=== PATIENT | female | born 1955 | race Caucasian/White ===

== ENCOUNTER 2020-02-12 11:56 | Day surgery (SDC) | payer MEDICARE ==
[~2020-02-12 11:56] MED LIST: DIPRIVAN 200 MG/20 ML IV ONE; Ketamine HCl 50 MG/ML ONE
[2020-02-12] MEDS ORDERED: Depo-Medrol 40 MG/ML IM ONE (11:57)
[2020-02-12] MEDS ORDERED: Sodium Chloride 0.9(Preservative Free) 10 ML IJ ONE (11:57)
--- NOTE | 2020-02-12 14:04 | XRAY ---
Indication: Right L4-S1 transforaminal FUNMILAYO. Intraoperative fluoroscopy was provided for 26 seconds. 4 digital spot images submitted for interpretation demonstrates posterior needle tips projecting over the expected right L4 and L5 nerve roots. Small amount of contrast injected for needle tip placement. Correlate with intraoperative findings/report.
--- NOTE | 2020-02-12 14:06 | XRAY ---
26 seconds of fluoroscopy was used in surgery for a right L4-L5, L5-S1 transforaminal FUNMILAYO.
[2020-02-12] MEDS ORDERED: Lactated Ringers 1,000 ML IV ONE (15:51)
== END 2020-02-12 13:40 | disposition home or self-care (01) ==
LOC: SDC-PAIN 11:56
PROVIDERS: ATTEND Psychiatry & Neurology Pain Medicine
DX: M54.16 Radiculopathy, lumbar region (principal); F41.8 Other specified anxiety disorders; Z79.899 Other long term (current) drug therapy
CPT/HCPCS: 64483; 64484; 72100; 77003; J1030; J2704; Q9966

== ENCOUNTER 2021-03-24 15:12 | Day surgery (SDC) | payer MEDICARE ==
[2021-03-24] MEDS ORDERED: Decadron 4 MG INJ IV ONE (15:13)
[2021-03-24] MEDS ORDERED: Depo-Medrol 40 MG/ML IM ONE (15:13)
[2021-03-24] MEDS ORDERED: Xylocaine 1% Vial 30 ML PF IJ ONE (15:13)
[2021-03-24] MEDS ORDERED: DIPRIVAN 200 MG/20 ML IV ONE (15:13)
[2021-03-24] MEDS ORDERED: Sodium Chloride 0.9(Preservative Free) 10 ML IJ ONE (15:13)
[2021-03-24] MEDS ORDERED: Lactated Ringers 1,000 ML IV ONE (17:30)
--- NOTE | 2021-03-25 07:17 | XRAY ---
Indication: Right piriformis muscle injection. Intraoperative fluoroscopy provided for 9 seconds. Single digital spot image submitted for interpretation demonstrates posterior needle tip projecting over the expected right piriformis muscle. Small amount of contrast injected for needle tip placement. Correlate with intraoperative findings/report.
--- NOTE | 2021-03-25 07:17 | XRAY ---
Indication: Right L4-S1 transforaminal FUNMILAYO. Intraoperative fluoroscopy provided for 21 seconds. 2 digital spot image submitted for interpretation demonstrates posterior needle tips projecting over the expected right L4 and L5 nerve roots. Small amount of contrast injected for needle tip placement. Correlate with intraoperative findings/report.
--- NOTE | 2021-03-25 10:20 | XRAY ---
9 seconds fluoroscopy time in surgery for injection of the right piriformis muscle.
--- NOTE | 2021-03-25 10:20 | XRAY ---
21 seconds fluoroscopy time in surgery for right L4-S1 transforaminal FUNMILAYO.
== END 2021-03-24 18:28 | disposition home or self-care (01) ==
LOC: SDC-PAIN 15:12
PROVIDERS: ATTEND Psychiatry & Neurology Pain Medicine
DX: M54.16 Radiculopathy, lumbar region (principal); M79.18 Myalgia, other site; F41.9 Anxiety disorder, unspecified; F32.9 Major depressive disorder, single episode, unspecified; G43.909 Migraine, unspecified, not intractable, without status migrainosus; Z79.899 Other long term (current) drug therapy
CPT/HCPCS: 20552; 64483; 64484; 72020; 72100; 77002; 77003; J1030; J1100; J2001; J2704; Q9966

== ENCOUNTER 2021-07-21 12:19 | Day surgery (SDC) | payer MEDICARE ==
[2021-07-21] MEDS ORDERED: Depo-Medrol 40 MG/ML IM ONE (12:20)
[2021-07-21] MEDS ORDERED: BUPIVACAINE 0.5% VIAL IJ ONE (12:20)
[2021-07-21] MEDS ORDERED: Lactated Ringers 1,000 ML IV ONE (14:29)
[2021-07-21] MEDS ORDERED: DIPRIVAN 200 MG/20 ML IV ONE (14:37)
--- NOTE | 2021-07-21 17:21 | XRAY ---
20 seconds fluoroscopy time in surgery for injections of both SI joints.
--- NOTE | 2021-07-21 17:22 | XRAY ---
Indication: Bilateral SI joint injection. Intraoperative fluoroscopy provided for 20 seconds. 3 digital spot image submitted for interpretation demonstrates posterior needle tip projecting over the inferior left and right SI joint. Correlate with intraoperative findings/report.
== END 2021-07-21 15:03 | disposition home or self-care (01) ==
LOC: SDC-PAIN 12:19
PROVIDERS: ATTEND Psychiatry & Neurology Pain Medicine
DX: M46.1 Sacroiliitis, not elsewhere classified (principal); Z79.899 Other long term (current) drug therapy
CPT/HCPCS: 27096; 72202; 77002; G0260; J1030; J2704

== ENCOUNTER 2022-02-16 12:06 | Day surgery (SDC) | payer MEDICARE ==
[2022-02-16] MEDS ORDERED: Sodium Chloride 0.9(Preservative Free) 10 ML IJ ONE (12:07)
[2022-02-16] MEDS ORDERED: Depo-Medrol 40 MG/ML IM ONE (12:07)
[2022-02-16] MEDS ORDERED: DIPRIVAN 200 MG/20 ML IV ONE (14:07)
[2022-02-16] MEDS ORDERED: Lactated Ringers 1,000 ML IV ONE (14:29)
--- NOTE | 2022-02-16 17:14 | XRAY ---
Indication: Right L3-L5 transforaminal FUNMILAYO. Intraoperative fluoroscopy provided for 26 seconds. 4 digital spot image submitted for interpretation demonstrates posterior needle tips projecting over the expected right L3 and L4 nerve roots. Small amount of contrast injected for needle tip placement. Correlate with intraoperative findings/report.
--- NOTE | 2022-02-16 17:21 | XRAY ---
26 seconds fluoroscopy time in surgery for right L3-L5 transforaminal FUNMILAYO.
== END 2022-02-16 14:40 | disposition home or self-care (01) ==
LOC: SDC-PAIN 12:06
PROVIDERS: ATTEND Psychiatry & Neurology Pain Medicine
DX: M54.16 Radiculopathy, lumbar region (principal); Z79.899 Other long term (current) drug therapy
CPT/HCPCS: 64483; 64484; 72100; 77003; J1030; J2704; Q9966

== ENCOUNTER 2022-08-31 12:28 | Day surgery (SDC) | payer MEDICARE ==
[2022-08-31] MEDS ORDERED: Depo-Medrol 40 MG/ML IM ONE (12:29)
[2022-08-31] MEDS ORDERED: BUPIVACAINE 0.5% VIAL IJ ONE (12:29)
[2022-08-31] MEDS ORDERED: DIPRIVAN 200 MG/20 ML IV ONE (14:42)
[2022-08-31] MEDS ORDERED: Lactated Ringers 1,000 ML IV ONE (15:11)
--- NOTE | 2022-08-31 16:27 | XRAY ---
Indication: Bilateral SI joint injection. Intraoperative fluoroscopy provided for 19 seconds. 4 digital spot images submitted for interpretation demonstrates posterior needle tip projecting over the left and right SI joint. Correlate with intraoperative findings/report.
--- NOTE | 2022-08-31 16:28 | XRAY ---
19 seconds of fluoroscopy was used in surgery for a sacroiliac joint injection.
== END 2022-08-31 15:30 | disposition home or self-care (01) ==
LOC: SDC-PAIN 12:28
PROVIDERS: ATTEND Psychiatry & Neurology Pain Medicine
DX: M46.1 Sacroiliitis, not elsewhere classified (principal); Z79.899 Other long term (current) drug therapy
CPT/HCPCS: 27096; 72202; 77002; G0260; J1030; J2704

== ENCOUNTER 2022-10-19 12:50 | Day surgery (SDC) | payer MEDICARE ==
[2022-10-19] MEDS ORDERED: LIDOCAINE HCL 2% 100 MG/5 ML IJ ONE (12:51)
[2022-10-19] MEDS ORDERED: DIPRIVAN 200 MG/20 ML IV ONE (14:44)
[2022-10-19] MEDS ORDERED: Lactated Ringers 1,000 ML IV ONE (15:24)
--- NOTE | 2022-10-19 16:40 | XRAY ---
Indication: Bilateral L4-S1 MBB. Intraoperative fluoroscopy provided for 11 seconds. Single digital spot image submitted for interpretation demonstrates posterior needle tips projecting over the expected left and right L4-S1 nerve roots. Correlate with intraoperative findings/report.
--- NOTE | 2022-10-19 16:44 | XRAY ---
11 seconds of fluoroscopy was used in surgery for a bilateral L4-S1 MBB.
== END 2022-10-19 15:15 | disposition home or self-care (01) ==
LOC: SDC-PAIN 12:50
PROVIDERS: ATTEND Psychiatry & Neurology Pain Medicine
DX: M47.816 Spondylosis without myelopathy or radiculopathy, lumbar region (principal); Z79.899 Other long term (current) drug therapy
CPT/HCPCS: 64493; 64494; 72020; 77002; J2704

== ENCOUNTER 2022-11-23 12:11 | Day surgery (SDC) | payer MEDICARE ==
[2022-11-23] MEDS ORDERED: BUPIVACAINE 0.5% VIAL IJ ONE (12:12)
[2022-11-23] MEDS ORDERED: DIPRIVAN 200 MG/20 ML IV ONE (13:25)
[2022-11-23] MEDS ORDERED: Lactated Ringers 1,000 ML IV ONE (13:37)
--- NOTE | 2022-11-23 14:38 | XRAY ---
Indication: Bilateral L4-S1 MBB Intraoperative fluoroscopy provided for 12 seconds. Single digital spot image submitted for interpretation demonstrate posterior needle tips projecting over the expected left and right L4-S1 nerve roots. Correlate with intraoperative findings/report.
--- NOTE | 2022-11-23 14:45 | XRAY ---
12 seconds of fluoroscopy was used in surgery for a bilateral L4-S1 MBB.
== END 2022-11-23 13:48 | disposition home or self-care (01) ==
LOC: SDC-PAIN 12:11
PROVIDERS: ATTEND Psychiatry & Neurology Pain Medicine
DX: M47.816 Spondylosis without myelopathy or radiculopathy, lumbar region (principal); Z79.899 Other long term (current) drug therapy
CPT/HCPCS: 64493; 64494; 72020; 77002; J2704

== ENCOUNTER 2023-01-04 13:15 | Day surgery (SDC) | payer MEDICARE ==
[2023-01-04] MEDS ORDERED: BUPIVACAINE 0.5% VIAL IJ ONE (13:16)
[2023-01-04] MEDS ORDERED: Depo-Medrol 40 MG/ML IM ONE (13:16)
[2023-01-04] MEDS ORDERED: LIDOCAINE HCL 1% 50 MG/5 ML VL PF IJ ONE (13:16)
[2023-01-04] MEDS ORDERED: DIPRIVAN 200 MG/20 ML IV ONE ×2 (15:15→15:19)
[2023-01-04] MEDS ORDERED: Lactated Ringers 1,000 ML IV ONE (16:01)
--- NOTE | 2023-01-04 16:33 | XRAY ---
19 seconds of fluoroscopy was used in surgery for a right L4-S1 RFA.
--- NOTE | 2023-01-04 16:37 | XRAY ---
Indication: Right L4-S1 RFA. Intraoperative fluoroscopy provided for 19 seconds. 4 digital spot image submitted for interpretation demonstrates posterior needle tips projecting over the expected right L4-S1 nerve roots. Correlate with intraoperative findings/report.
== END 2023-01-04 15:40 | disposition home or self-care (01) ==
LOC: SDC-PAIN 13:15
PROVIDERS: ATTEND Psychiatry & Neurology Pain Medicine
DX: M47.816 Spondylosis without myelopathy or radiculopathy, lumbar region (principal); Z79.899 Other long term (current) drug therapy
CPT/HCPCS: 64635; 64636; 72100; 77002; J1030; J2001; J2704

== ENCOUNTER 2023-01-11 13:06 | Day surgery (SDC) | payer MEDICARE ==
[2023-01-11] MEDS ORDERED: XYLOCAINE 1% HCL 20 ML MDV IJ ONE (13:07)
[2023-01-11] MEDS ORDERED: Depo-Medrol 40 MG/ML IM ONE (13:07)
[2023-01-11] MEDS ORDERED: BUPIVACAINE 0.5% VIAL IJ ONE (13:07)
[2023-01-11] MEDS ORDERED: DIPRIVAN 200 MG/20 ML IV ONE ×2 (15:46→15:52)
--- NOTE | 2023-01-11 16:53 | XRAY ---
Indication: Left L4-S1 RFA. Intraoperative fluoroscopy provided for 42 seconds. 5 digital spot images submitted for interpretation demonstrates posterior needle tips projecting over the expected left L4-S1 nerve roots. Correlate with intraoperative findings/report.
[2023-01-11] MEDS ORDERED: Lactated Ringers 1,000 ML IV ONE (18:04)
--- NOTE | 2023-01-12 09:54 | XRAY ---
42 seconds of fluoroscopy was used in surgery for a left L4-S1 RFA.
== END 2023-01-11 16:15 | disposition home or self-care (01) ==
LOC: SDC-PAIN 13:06
PROVIDERS: ATTEND Psychiatry & Neurology Pain Medicine
DX: M47.816 Spondylosis without myelopathy or radiculopathy, lumbar region (principal); Z79.899 Other long term (current) drug therapy
CPT/HCPCS: 64635; 64636; 72100; 77002; J1030; J2704

== ENCOUNTER 2023-11-15 11:52 | Day surgery (SDC) | payer MEDICARE ==
[2023-11-15] MEDS ORDERED: Depo-Medrol 40 MG/ML IM ONE (11:53)
[2023-11-15] MEDS ORDERED: BUPIVACAINE 0.5% VIAL IJ ONE (11:53)
[2023-11-15] MEDS ORDERED: Lactated Ringers 1,000 ML IV ONE (15:00)
[2023-11-15] MEDS ORDERED: DIPRIVAN 200 MG/20 ML IV ONE (15:27)
--- NOTE | 2023-11-15 16:55 | XRAY ---
Indication: Bilateral SI joint injection. Intraoperative fluoroscopy provided for 23 seconds. 2 digital spot images submitted for interpretation demonstrates posterior needle tips projecting over the expected left and right SI joint. Small amount of contrast injected for needle tip placement. Correlate with intraoperative findings/report.
--- NOTE | 2023-11-16 09:26 | XRAY ---
23 seconds of fluoroscopy was used in surgery for a bilateral sacroiliac joint injection.
== END 2023-11-15 16:02 | disposition home or self-care (01) ==
LOC: SDC-PAIN 11:52
PROVIDERS: ATTEND Psychiatry & Neurology Pain Medicine
DX: M46.1 Sacroiliitis, not elsewhere classified (principal)
CPT/HCPCS: 01992; 27096; 72202; 77002; G0260; J1010; J2704; Q9966

== ENCOUNTER 2023-12-20 15:41 | Day surgery (SDC) | payer MEDICARE, OTHER ==
[2023-12-20] MEDS ORDERED: LIDOCAINE HCL 1% 50 MG/5 ML VL PF IJ ONE (15:42)
[2023-12-20] MEDS ORDERED: Depo-Medrol 40 MG/ML IM ONE (15:42)
[2023-12-20] MEDS ORDERED: BUPIVACAINE 0.5% VIAL IJ ONE (15:42)
--- NOTE | 2023-12-20 18:14 | XRAY ---
Indication: Right knee injection. Intraoperative fluoroscopy provided for 8 seconds. Single digital spot image submitted for interpretation demonstrates needle tip projecting over right femur intercondylar notch. Small amount of contrast injected for needle tip placement. Correlate with intraoperative findings/report.
--- NOTE | 2023-12-21 13:12 | XRAY ---
8 seconds of fluoroscopy was used in surgery for a right intra-articular knee injection.
== END 2023-12-20 17:07 | disposition home or self-care (01) ==
LOC: SDC-PAIN 15:41
PROVIDERS: ATTEND Psychiatry & Neurology Pain Medicine
DX: M17.11 Unilateral primary osteoarthritis, right knee (principal)
CPT/HCPCS: 20610; 73560; 77002; J2001; Q9966

== ENCOUNTER 2024-04-17 11:16 | Day surgery (SDC) | payer MEDICARE, OTHER ==
[2024-04-17] MEDS ORDERED: Decadron 4 MG INJ IV ONE (11:17)
[2024-04-17] MEDS ORDERED: Sodium Chloride 0.9(Preservative Free) 10 ML IJ ONE (11:17)
[2024-04-17] MEDS ORDERED: DIPRIVAN 200 MG/20 ML IV ONE (12:55)
[2024-04-17] MEDS ORDERED: MORPHINE SULFATE 2 MG INJ ONE (13:24)
--- NOTE | 2024-04-17 14:39 | XRAY ---
Indication: Right L3-L5 transforaminal FUNMILAYO. Intraoperative fluoroscopy provided for 24 seconds. 4 digital spot image submitted for interpretation demonstrates posterior needle tips projecting over the expected right L3 and L4 nerve roots. Small amount of contrast injected for needle tip placement. Correlate with operative findings/report.
--- NOTE | 2024-04-17 17:10 | XRAY ---
24 seconds of fluoroscopy was used in surgery for a right L3-L5 transforaminal FUNMILAYO.
== END 2024-04-17 13:58 | disposition home or self-care (01) ==
LOC: SDC-PAIN 11:16
PROVIDERS: ATTEND Psychiatry & Neurology Pain Medicine
DX: M54.16 Radiculopathy, lumbar region (principal)
CPT/HCPCS: 64483; 64484; 72100; 77003; J1100; J2270; J2704; Q9966

== ENCOUNTER 2024-08-28 10:51 | Day surgery (SDC) | payer MEDICARE, OTHER ==
[2024-08-28] MEDS ORDERED: Depo-Medrol 40 MG/ML IM ONE (10:52)
[2024-08-28] MEDS ORDERED: Sodium Chloride 0.9(Preservative Free) 10 ML IJ ONE (10:52)
[2024-08-28] MEDS ORDERED: LIDOCAINE HCL 1% AMPUL 5 ML IJ ONE (10:52)
[2024-08-28] MEDS ORDERED: propofoL IV ONE (11:43)
--- NOTE | 2024-08-28 12:53 | XRAY ---
Indication: Lumbar FUNMILAYO. Intraoperative fluoroscopy provided for 8 seconds. 2 digital spot image submitted for interpretation demonstrates posterior needle tip projecting over lumbosacral junction. Small amount of contrast injected for needle tip placement. Correlate with intraoperative findings/report.
--- NOTE | 2024-08-28 12:58 | XRAY ---
8 seconds of fluoroscopy was used in surgery for a lumbar FUNMILAYO.
== END 2024-08-28 12:15 | disposition home or self-care (01) ==
LOC: SDC-PAIN 10:51
PROVIDERS: ATTEND Psychiatry & Neurology Pain Medicine
DX: M54.16 Radiculopathy, lumbar region (principal)
CPT/HCPCS: 62321; 72100; J2704; Q9966